=== PATIENT | female | born 2000 | race Caucasian/White ===

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

== ENCOUNTER 2020-10-30 00:39 | Emergency (ER) | payer OTHER ==
[~2020-10-30] VITALS: Ht 162.6 cm; Wt 93.9 kg
[2020-10-30 00:45] VITALS: BP 147/101
--- NOTE | 2020-10-30 00:53 | NUR ---
PT AMBULATED TO LOBBY W/ STEADY GAIT. PT PROVIDED URINE CUP AT THIS TIME.
--- NOTE | 2020-10-30 01:50 | NUR ---
SEEN AND EXAMINED BY CECILIA SALTER ORDERS AND CARRIED OUT.
--- NOTE | 2020-10-30 02:07 | NUR ---
LAB WITH PATIENT COLLECTING LAB SAMPLES.
[2020-10-30 02:09] LABS: BASOPHILS % (AUTO) 0.4 % (0.0-2.0); EOSINOPHILS # (AUTO) 0.2 K/uL (0-0.4); EOSINOPHILS % (AUTO) 1.5 % (0.0-4.0); HEMATOCRIT 40.6 % (36-48); HEMOGLOBIN 13.3 g/dL (12.0-16.0); LYMPHOCYTES # (AUTO) 2.7 K/uL (2.5-16.5); LYMPHOCYTES % (AUTO) 27.1 % (20.5-51.1); MEAN CORPUSCULAR HEMOGLOBIN 29 pg (27-31); MEAN CORPUSCULAR HGB CONC 33 g/dL (33-37); MEAN CORPUSCULAR VOLUME 87.6 fL (80-94); MONOCYTES # (AUTO) 0.8 K/uL (0.8-1.0); MONOCYTES % (AUTO) 8.5 % (1.7-9.3); NEUTROPHILS # (AUTO) 6.1 K/uL (1.8-7.7); NEUTROPHILS % (AUTO) 62.5 % (42.2-75.2); PLATELET COUNT (AUTO) 355 K/uL (140-450); RED BLOOD CELL COUNT(AUTO) 4.64 MIL/uL (4.20-5.40); RED CELL DISTRIBUTION WIDTH 14.3 % (11.6-13.7); WHITE BLOOD COUNT (AUTO) 9.8 K/uL (4.5-11.0)
[2020-10-30 02:22] LABS: CARBON DIOXIDE 27.9 mmol/L (21-32); POTASSIUM 3.9 mmol/L (3.5-5.1)
[2020-10-30 02:45] VITALS: BP 147/101
--- NOTE | 2020-10-30 02:45 | NUR ---
Patient discharged with v/s stable. Written and verbal after care instructions given and explained. Patient alert, oriented and verbalized understanding of instructions. Ambulatory with steady gait. All questions addressed prior to discharge. ID band removed. Patient advised to follow up with PMD. Rx of Flash [employer]ailing[employer] FLASH BLOOD GLUCOSE MONITOR KIT given. Patient educated on indication of medication including possible reaction and side effects. Opportunity to ask questions provided and answered.
== END 2020-10-30 02:45 | disposition home or self-care (01) ==
LOC: MED 00:39
DX: R25.1 Tremor, unspecified (principal); E16.2 Hypoglycemia, unspecified; J45.909 Unspecified asthma, uncomplicated; Z79.899 Other long term (current) drug therapy
CPT/HCPCS: 36415; 80048; 81002; 81025; 85025; 99283

== ENCOUNTER 2020-11-19 01:56 | Emergency (ER) | payer OTHER ==
[~2020-11-19] VITALS: Ht 165.1 cm; Wt 93.9 kg
[2020-11-19 02:11] VITALS: BP 146/90
[2020-11-19 04:08] LABS: BASOPHILS % (AUTO) 0.4 % (0.0-2.0); EOSINOPHILS # (AUTO) 0.1 K/uL (0-0.4); HEMATOCRIT 40.5 % (36-48); HEMOGLOBIN 13.7 g/dL (12.0-16.0); LYMPHOCYTES # (AUTO) 2.5 K/uL (2.5-16.5); LYMPHOCYTES % (AUTO) 26.1 % (20.5-51.1); MEAN CORPUSCULAR HEMOGLOBIN 30 pg (27-31); MEAN CORPUSCULAR HGB CONC 34 g/dL (33-37); MEAN CORPUSCULAR VOLUME 87.4 fL (80-94); MONOCYTES # (AUTO) 0.7 K/uL (0.8-1.0); MONOCYTES % (AUTO) 7.6 % (1.7-9.3); NEUTROPHILS # (AUTO) 6.3 K/uL (1.8-7.7); NEUTROPHILS % (AUTO) 64.9 % (42.2-75.2); PLATELET COUNT (AUTO) 336 K/uL (140-450); RED BLOOD CELL COUNT(AUTO) 4.63 MIL/uL (4.20-5.40); RED CELL DISTRIBUTION WIDTH 14.2 % (11.6-13.7); WHITE BLOOD COUNT (AUTO) 9.7 K/uL (4.5-11.0)
[2020-11-19 04:22] LABS: ALBUMIN 4.2 g/dL (3.4-5.0); ANION GAP 14.2 (8-16); CARBON DIOXIDE 26.8 mmol/L (21-32); CREATININE 0.9 mg/dL (0.6-1.3); TOTAL BILIRUBIN 0.3 mg/dL (0.0-1.0)
[2020-11-19 04:52] LABS: FREE T4 (FREE THYROXINE) 1.11 ng/dL (0.76-1.46); THYROID STIMULATING HORMONE 0.57 uIU/mL (0.34-3.74)
[2020-11-19 06:11] VITALS: BP 146/90
--- NOTE | 2020-11-19 06:12 | NUR ---
Patient discharged with v/s stable. Written and verbal after care instructions given and explained. Patient verbalized understanding. Ambulatory with steady gait. All questions addressed prior to discharge. Advised to follow up with PMD.
== END 2020-11-19 06:11 | disposition home or self-care (01) ==
LOC: MED 01:56
DX: R07.89 Other chest pain (principal); R00.2 Palpitations; R42 Dizziness and giddiness; R11.0 Nausea; J45.909 Unspecified asthma, uncomplicated; Z79.51 Long term (current) use of inhaled steroids
CPT/HCPCS: 36415; 71045; 80053; 84439; 84443; 85025; 85379; 93005; 99285

== ENCOUNTER 2021-11-05 13:58 | Emergency (ER) | payer OTHER ==
[~2021-11-05] VITALS: Ht 162.6 cm; Wt 86.2 kg
[~2021-11-05 13:58] MED LIST changes: +ALBU-118 IH; -ALBU-136 IH
[2021-11-05 14:10] VITALS: BP 137/83
--- NOTE | 2021-11-05 14:14 | NUR ---
PHANI. HANDED ON URINE CUP.
--- NOTE | 2021-11-05 14:50 | NUR ---
US AT PT BEDSIDE.
--- NOTE | 2021-11-05 15:08 | NUR ---
21 Y/O FEMALE C/O VAGINAL BLEEDING WITH MODERATE SIZE CLOTS, DIZZINESS X 3 DAYS. DENIES N/V/D, DENIES FEVER/CHILLS. ABD IS SOFT, ROUND, BOWEL SOUNDS ACTIVE X4, LAST BM 11/05/21. LMP 11/02/21. DENIES PMH NKA
[2021-11-05 15:23] LABS: BASOPHILS % (AUTO) 0.5 % (0.0-2.0); EOSINOPHILS # (AUTO) 0.1 K/uL (0-0.4); EOSINOPHILS % (AUTO) 0.9 % (0.0-4.0); HEMATOCRIT 40.9 % (36-48); HEMOGLOBIN 13.7 g/dL (12.0-16.0); LYMPHOCYTES # (AUTO) 1.2 K/uL (2.5-16.5); LYMPHOCYTES % (AUTO) 15.8 % (20.5-51.1); MEAN CORPUSCULAR HEMOGLOBIN 30 pg (27-31); MEAN CORPUSCULAR HGB CONC 33 g/dL (33-37); MEAN CORPUSCULAR VOLUME 89.5 fL (80-94); MONOCYTES # (AUTO) 0.6 K/uL (0.8-1.0); MONOCYTES % (AUTO) 8.4 % (1.7-9.3); NEUTROPHILS # (AUTO) 5.7 K/uL (1.8-7.7); NEUTROPHILS % (AUTO) 74.4 % (42.2-75.2); PLATELET COUNT (AUTO) 311 K/uL (140-450); RED BLOOD CELL COUNT(AUTO) 4.57 MIL/uL (4.20-5.40); RED CELL DISTRIBUTION WIDTH 14.3 % (11.6-13.7); WHITE BLOOD COUNT (AUTO) 7.6 K/uL (4.8-10.8)
[2021-11-05 15:55] LABS: BILIRUBIN,URINE NEGATIVE (NEGATIVE); BLOOD, URINE 3+ (NEGATIVE); LEUKOCYTE ESTERASE ,URINE NEGATIVE (NEGATIVE); NITRITE, URINE NEGATIVE (NEGATIVE); UGLUCOSE NEGATIVE (NEGATIVE)
[2021-11-05 15:56] LABS: APPEARANCE,URINE BLOODY (CLEAR); COLOR,URINE PINK (YELLOW)
[2021-11-05 16:01] LABS: ANION GAP 13.2 (8-16); CARBON DIOXIDE 29.5 mmol/L (21-32); CREATININE 0.9 mg/dL (0.6-1.3); POTASSIUM 3.7 mmol/L (3.5-5.1)
--- NOTE | 2021-11-05 16:42 | NUR ---
Dr Stapleton at bedside to consult with pt
[2021-11-05 16:48] LABS: RBC,URINE TOO NUMEROUS TO COUN /HPF (0-5); WBC,URINE 0-5 /HPF (0-5)
[2021-11-05] MEDS ORDERED: IBUP-2213 PO (16:50)
[2021-11-05 16:55] VITALS: BP 129/84
--- NOTE | 2021-11-05 17:02 | NUR ---
Patient discharged with v/s stable. Written and verbal after care instructions given and explained. Patient alert, oriented and verbalized understanding of instructions. Ambulatory with steady gait. All questions addressed prior to discharge. ID band removed. Patient advised to follow up with PMD. Rx of IBUPROFEN given. Opportunity to ask questions provided and answered.
== END 2021-11-05 17:01 | disposition home or self-care (01) ==
LOC: MED 13:58
DX: N93.9 Abnormal uterine and vaginal bleeding, unspecified (principal); J45.909 Unspecified asthma, uncomplicated; Z79.1 Long term (current) use of non-steroidal anti-inflammatories (NSAID); Z79.51 Long term (current) use of inhaled steroids
CPT/HCPCS: 36415; 76817; 80048; 81001; 81025; 84702; 85025; 86900; 86901; 99284; Q0092

== ENCOUNTER 2022-01-17 09:34 | Emergency (ER) | payer OTHER ==
[~2022-01-17] VITALS: Ht 162.6 cm; Wt 86.2 kg
[~2022-01-17 09:34] MED LIST changes: +IBUP-2213 PO
[2022-01-17 09:41] VITALS: BP 141/65
[2022-01-17] MEDS ORDERED: CEPH-588 PO (09:56)
[2022-01-17] MEDS ORDERED: NAPR-1704 PO (09:56)
--- NOTE | 2022-01-17 09:57 | NUR ---
22/F BIB SELF WITH C/O URINARY BURNING, NAUSEA AND LOW BACK AND ABDOMINAL PAIN X5 DAYS. PATIENT STATES SHE WAS DRINKING ALCOHOL ON SATURDAY AND STATES IT WORSENED SYMPTOMS. PATIENT STATES SHE HAS THE URGENCY TO URINATE BUT LITTLE COMES OUT, SOME TENDERNESS TO LOWER BACK. PATIENT REPORTS TAKING CRANBERRY PILLS WITH NO RELIEF.
[2022-01-17 10:03] VITALS: BP 141/65
--- NOTE | 2022-01-17 10:04 | NUR ---
Patient discharged with v/s stable. Written and verbal after care instructions ABOUT URINARY TRACT INFECTION given and explained. Patient alert, oriented and verbalized understanding of instructions. Ambulatory with steady gait. All questions addressed prior to discharge. ID band removed. Patient advised to follow up with PMD. Rx of KEFLEX AND NAPROSYN given. Patient educated on indication of medication including possible reaction and side effects. Opportunity to ask questions provided and answered.
== END 2022-01-17 10:03 | disposition home or self-care (01) ==
LOC: MED 09:34
DX: N39.0 Urinary tract infection, site not specified (principal); J45.909 Unspecified asthma, uncomplicated; Z79.899 Other long term (current) drug therapy
CPT/HCPCS: 81002; 81025; 99283

== ENCOUNTER 2023-02-24 14:38 | Emergency (ER) | payer OTHER ==
[~2023-02-24] VITALS: Ht 162.6 cm; Wt 88.5 kg
[~2023-02-24 14:38] MED LIST changes: +CEPH-588 PO; +NAPR-1704 PO
[2023-02-24 15:05] VITALS: BP 143/96
--- NOTE | 2023-02-24 16:41 | NUR ---
pt ambulated to bed 07
--- NOTE | 2023-02-24 17:17 | NUR ---
Patient was taken to CT via wheelchair.
--- NOTE | 2023-02-24 17:17 | NUR ---
23 y/o female bib self for c/o dizziness from s/p fall x 2 days. Patient reports she was at the club fell and hit head, she was drunk and does not recall events. Per patient's friends, she lost conciousness and threw up after incident. Patient still reports head pain and dizziness. Denies taking any medication for symptoms. Medical History: Asthma NKDA
--- NOTE | 2023-02-24 17:23 | NUR ---
Patient returned from CT.
[2023-02-24] MEDS ORDERED: ONDA-188 SL (18:03)
[2023-02-24 18:40] VITALS: BP 128/82
--- NOTE | 2023-02-24 18:40 | NUR ---
Patient discharged with v/s stable. Written and verbal after care instructions given. Patient alert, oriented and verbalized understanding of instructions. Ambulatory with steady gait. All questions addressed prior to discharge. ID band removed. Patient advised to follow up with PMD. Rx of Zofran given. Opportunity to ask questions provided and answered.
--- NOTE | 2023-02-24 18:40 | NUR ---
The patient's care was reviewed and supervised by Jeannie Olivarez, RN, RN.
== END 2023-02-24 18:40 | disposition home or self-care (01) ==
LOC: MED 14:38
DX: S06.0X1A Concussion with loss of consciousness of 30 minutes or less, initial encounter (principal); J45.909 Unspecified asthma, uncomplicated; F10.129 Alcohol abuse with intoxication, unspecified; Y90.9 Presence of alcohol in blood, level not specified; W22.8XXA Striking against or struck by other objects, initial encounter; Y93.89 Activity, other specified; Y92.89 Other specified places as the place of occurrence of the external cause; Y99.8 Other external cause status
CPT/HCPCS: 70450; 81025; 93005; 99284

== ENCOUNTER 2023-11-04 11:23 | Emergency (ER) | payer OTHER ==
[~2023-11-04] VITALS: Ht 165.1 cm; Wt 81.6 kg
[~2023-11-04 11:23] MED LIST changes: +ONDA-188 SL
[2023-11-04 11:51] VITALS: BP 113/75; PULSE 89; RESP 18; TEMP 98; O2SAT 98
[2023-11-04 12:59] LABS: APPEARANCE,URINE SLIGHTLY CLOUDY (CLEAR); BILIRUBIN,URINE NEGATIVE (NEGATIVE); BLOOD, URINE 3+ (NEGATIVE); COLOR,URINE AMBER (YELLOW); LEUKOCYTE ESTERASE ,URINE 1+ (NEGATIVE); NITRITE, URINE NEGATIVE (NEGATIVE); PROTEIN,URINE TRACE (NEGATIVE); UGLUCOSE NEGATIVE (NEGATIVE); UROBILINOGEN,URINE 0.2 EU/dL (0.2 - 1)
[2023-11-04 13:08] LABS: BACTERIA,URINE 10-30 (MOD) /HPF (None Seen); MUCUS,URINE 2+ /LPF (None Seen); RBC,URINE 11-20 (MOD) /HPF (0-5); SQUAMOUS EPITHELIAL CELL,UR 4-10 (MOD) /LPF (0-3 (FEW))
[2023-11-04 13:22] LABS: BASOPHILS # (AUTO) 0.1 K/uL (0.00-0.22); BASOPHILS % (AUTO) 0.6 % (0.0-2.0); EOSINOPHILS # (AUTO) 0.1 K/uL (0-0.4); EOSINOPHILS % (AUTO) 0.5 % (0.0-4.0); HEMATOCRIT 40.1 % (36-48); HEMOGLOBIN 13.4 g/dL (12.0-16.0); LYMPHOCYTES # (AUTO) 1.8 K/uL (2.5-16.5); LYMPHOCYTES % (AUTO) 14.7 % (20.5-51.1); MEAN CORPUSCULAR HEMOGLOBIN 30 pg (27-31); MEAN CORPUSCULAR HGB CONC 34 g/dL (33-37); MEAN CORPUSCULAR VOLUME 89.5 fL (80-94); MONOCYTES # (AUTO) 0.8 K/uL (0.8-1.0); MONOCYTES % (AUTO) 6.5 % (1.7-9.3); NEUTROPHILS # (AUTO) 9.4 K/uL (1.8-7.7); NEUTROPHILS % (AUTO) 77.7 % (42.2-75.2); PLATELET COUNT (AUTO) 320 K/uL (140-450); RED BLOOD CELL COUNT(AUTO) 4.48 MIL/uL (4.20-5.40); RED CELL DISTRIBUTION WIDTH 13.9 % (11.6-13.7); WHITE BLOOD COUNT (AUTO) 12.1 K/uL (4.8-10.8)
[2023-11-04] MEDS ORDERED: NITR100C7 PO (15:10)
== END 2023-11-04 15:27 | disposition home or self-care (01) ==
LOC: MED 11:23
DX: O46.91 Antepartum hemorrhage, unspecified, first trimester (principal); Z3A.01 Less than 8 weeks gestation of pregnancy
CPT/HCPCS: 36415; 76817; 81001; 81025; 84702; 85025; 86900; 86901; 87086; 99284

== ENCOUNTER 2024-09-11 16:23 | Emergency (ER) | payer OTHER ==
[~2024-09-11] VITALS: Ht 167.6 cm; Wt 81.6 kg
[~2024-09-11 16:23] MED LIST changes: +NITR100C7 PO
[2024-09-11 16:37] VITALS: BP 127/83; PULSE 173; RESP 20; TEMP 100; O2SAT 99
[2024-09-11] MEDS ORDERED: ADENOSINE 6 MG/2 ML VIAL IVP ONE ×3 (16:51→17:34)
[2024-09-11] MEDS ORDERED: IBUPROFEN 600 MG TAB ONE (17:14)
[2024-09-11] MEDS: IBUPROFEN 600 MG TAB PO ONE (17:23)
[2024-09-11 17:32] LABS: BASOPHILS % (AUTO) 0.1 % (0.0-2.0); EOSINOPHILS % (AUTO) 0.2 % (0.0-4.0); HEMATOCRIT 39.9 % (36-48); HEMOGLOBIN 13.5 g/dL (12.0-16.0); LYMPHOCYTES % (AUTO) 13.1 % (20.5-51.1); MEAN CORPUSCULAR HEMOGLOBIN 30 pg (27-31); MEAN CORPUSCULAR HGB CONC 34 g/dL (33-37); MEAN CORPUSCULAR VOLUME 88.1 fL (80-94); MONOCYTES # (AUTO) 0.3 K/uL (0.8-1.0); MONOCYTES % (AUTO) 3.4 % (1.7-9.3); NEUTROPHILS # (AUTO) 6.6 K/uL (1.8-7.7); NEUTROPHILS % (AUTO) 83.2 % (42.2-75.2); PLATELET COUNT (AUTO) 246 K/uL (140-450); RED BLOOD CELL COUNT(AUTO) 4.53 MIL/uL (4.20-5.40); WHITE BLOOD COUNT (AUTO) 7.9 K/uL (4.8-10.8)
[2024-09-11] MEDS: NACL 0.9% 2,000 ML IV ONE (17:35)
[2024-09-11] MEDS: ADENOSINE 6 MG/2 ML VIAL IVP ONE ×3 (17:40→18:04)
[2024-09-11 17:58] LABS: LACTIC ACID 2.4 mmol/L (0.4-2.0)
[2024-09-11 18:16] LABS: ALBUMIN 3.8 g/dL (3.4-5.0); ANION GAP 13.6 (8-16); CALCIUM 9.2 mg/dL (8.5-10.1); CARBON DIOXIDE 27.8 mmol/L (21-32); CREATININE 1.1 mg/dL (0.6-1.3); POTASSIUM 4.4 mmol/L (3.5-5.1); TOTAL BILIRUBIN 0.5 mg/dL (0.0-1.0); TOTAL PROTEIN, SERUM 7.6 g/dL (6.4-8.2)
[2024-09-11 18:32] LABS: APPEARANCE,URINE CLEAR (CLEAR); BILIRUBIN,URINE NEGATIVE (NEGATIVE); BLOOD, URINE 2+ (NEGATIVE); COLOR,URINE YELLOW (YELLOW); LEUKOCYTE ESTERASE ,URINE NEGATIVE (NEGATIVE); NITRITE, URINE NEGATIVE (NEGATIVE); PH,URINE 7.5 (5.0-9.0); PROTEIN,URINE NEGATIVE (NEGATIVE); UGLUCOSE NEGATIVE (NEGATIVE); UROBILINOGEN,URINE 0.2 EU/dL (0.2 - 1)
[2024-09-11 18:44] LABS: BACTERIA,URINE FEW /HPF (None Seen); RBC,URINE 11-20 (MOD) /HPF (0-5); SQUAMOUS EPITHELIAL CELL,UR 0-3 (FEW) /LPF (0-3 (FEW)); WBC,URINE 0-5 /HPF (0-5)
[2024-09-11] MEDS ORDERED: cefTRIAXone 1,000 MG VIAL ONE (20:15)
[2024-09-11] MEDS: NACL 0.9% 1,000 ML IV ONE (20:50)
[2024-09-11 22:24] VITALS: BP 123/80; PULSE 121; RESP 20; TEMP 100.3; O2SAT 100
== END 2024-09-11 22:25 | disposition home or self-care (01) ==
LOC: MED 16:23
DX: I47.10 Supraventricular tachycardia, unspecified (principal); R50.9 Fever, unspecified; J45.909 Unspecified asthma, uncomplicated; Z79.899 Other long term (current) drug therapy
CPT/HCPCS: 36415; 71045; 71275; 76856; 80053; 81001; 81025; 83605; 84484; 85025; 85379; 87040; 87086; 93005; 93976; 96361; 96365; 96375; 99291; J0153; J0696; J7030; Q0092; Q9967